=== PATIENT | female | born 2000 | race Caucasian/White ===

== ENCOUNTER 2019-11-23 22:49 | Emergency (ER) | payer BC ==
--- NOTE | 2019-11-23 23:08 | ED ---
Head Injury - HPI Summary HPI Summary: 19-year-old female without significant past history presents to the emergency department today with a chief complaint of a head injury and lightheadedness. Patient states approximately one hour ago she was hit in head with a volleyball and felt dizzy afterwards. Patient denies loss of consciousness or amnesia. Patient at this time has a 2 out of 10 headache and feels "groggy". Patient denies neck pain, nausea, vomiting. GCS 15. Patient otherwise feels well and denies fever, chest pain, abdominal pain, pain with urination, rash. Patient denies recent recreational drug use or alcohol use. - History Of Current Complaint Chief Complaint: EDHeadInjury Stated Complaint: HIT IN THE HEAD WITH VOLLEYBALL PER PT Time Seen by Provider: 11/23/19 22:55 Hx Obtained From: Patient Mechanism Of Injury: Direct Blow Onset/Duration: Started Hours Ago Onset of Pain: Immediate Severity Currently: None Severity Initially: Mild Pain Intensity: 0 Pain Scale Used: 0-10 Numeric Location of Head Injury: Frontal Character: Dull Associated Signs And Symptoms: Negative - Allergies/Home Medications Allergies/Adverse Reactions: Allergies Allergy/AdvReac Type Severity Reaction Status Date / Time cephalexin Allergy Hives Verified 11/23/19 22:51 Penicillins Allergy Hives Verified 11/23/19 22:51 Home Medications: Home Medications NK [No Home Medications Reported] 11/23/19 [History Confirmed 11/23/19] PMH/Surg Hx/FS Hx/Imm Hx Infectious Disease History: No Infectious Disease History: Denies: Traveled Outside the [place] in Last 30 Days - Social History Alcohol Use: Weekly Substance Use Type: Reports: None Smoking Status (MU): Never Smoked Tobacco Review of Systems Constitutional: Negative Eyes: Negative ENT: Negative Cardiovascular: Negative Respiratory: Negative Gastrointestinal: Negative Genitourinary: Negative Musculoskeletal: Negative Skin: Negative Positive: Headache Psychological: Normal All Other Systems Reviewed And Are Negative: Yes Physical Exam - Summary Physical Exam Summary: Patient has no acute distress. Patient has no pain with palpation of cervical spine. PERRLA, EOMI, [id number] intact, cerebellar function intact. Patient's gait intact. Triage Information Reviewed: Yes Vital Signs On Initial Exam: Initial Vitals Temp Pulse Resp BP Pulse Ox 97.5 F 85 16 144/88 100 11/23/19 22:50 11/23/19 22:50 11/23/19 22:50 11/23/19 22:50 11/23/19 22:50 Vital Signs Reviewed: Yes Appearance: Positive: Well-Appearing, No Pain Distress, Well-Nourished Skin: Positive: Warm, Skin Color Reflects Adequate Perfusion Eyes: Positive: EOMI, RACHAEL ENT: Positive: Hearing grossly normal Respiratory/Lung Sounds: Positive: Clear to Auscultation, Breath Sounds Present Cardiovascular: Positive: RRR, S1, S2 Musculoskeletal: Positive: Strength/ROM Intact Neurological: Positive: Sensory/Motor Intact, Alert, Oriented to Person Place, Time, Normal Gait, Heel to Toe, Finger to Nose, Facial Symmetry, Speech Normal. Negative: Cerebellar Dysfunction, Disoriented, Facial Droop Psychiatric: Positive: Normal, Affect/Mood Appropriate AVPU Assessment: Alert Procedures - Sedation Patient Received Moderate/Deep Sedation with Procedure: No Diagnostics - Vital Signs Vital Signs Temp Pulse Resp BP Pulse Ox 11/23/19 22:50 97.5 F 85 16 144/88 100 - Laboratory Lab Statement: Any lab studies that have been ordered have been reviewed, and results considered in the medical decision making process. Head Injury Course/Dx Course Of Treatment: Patient evaluated in the emergency department today for head injury. Patient examined. Vital stable. Patient had normal neurological exam. Cerebellar function was intact. Patient was alert and oriented 3. GCS 15. [place] head CT rules deemed patient unfit for head CT evaluation at this time. Patient discharged to outpatient follow-up with diagnosis of head injury with no sequela. - Diagnoses Differential Diagnosis/HQI/PQRI: Cerebral Contusion, Concussion With LOC, Concussion Without LOC, Contusion, Skull Fracture Provider Diagnoses: Head injury Discharge ED - Sign-Out/Discharge Documenting (check all that apply): Patient Departure - Discharge Plan Condition: Stable Disposition: HOME Patient Education Materials: Head Injury (ED) Additional Instructions: You were seen in the emergency department today due to a head injury. There appears to be no significant pathology requiring intervention at this time. Please go home and rest and take ibuprofen as needed for pain and headache. Please follow-up with your [facility] in 3-5 days for further evaluation and management. Please return to this emergency Department immediately if you develop any new or worsening symptoms. - Billing Disposition and Condition Condition: STABLE Disposition: Home
[2019-11-23 23:09] VITALS: BP 00/00
== END 2019-11-23 23:07 | disposition home or self-care (01) ==
LOC: ED 22:49
DX: S09.90XA Unspecified injury of head, initial encounter (principal); W21.06XA Struck by volleyball, initial encounter; Y92.9 Unspecified place or not applicable; R42 Dizziness and giddiness; Z88.1 Allergy status to other antibiotic agents; Z88.0 Allergy status to penicillin
CPT/HCPCS: 99282